=== PATIENT | female | born 1970 ===

== ENCOUNTER 2016-09-03 08:24 | Emergency (ER) | payer MEDICARE, OTHER ==
[~2016-09-03] VITALS: Ht 176.5 cm; Wt 102.3 kg
[~2016-09-03 08:24] MED LIST: ABAC1TAB14 PO; ALBU90AE IH; AMT50T PO; ATOR20TA PO; AZEL137S11 NS; CETI10CA PO; ESOM40CA41 PO; FLUT16SP NS; GABA800T2 PO; GLIM2TAB2 PO; HYDR2TAB28 PO; HYDR50TA76 PO; INSU100I13 SUBQ; INSU100V7 SUBQ; KLO1T PO; LOSA25TA21 PO; METF1000 PO; METF500T4 PO; PRAZ1CAP2 PO; PROP80CA2 PO; RANI300C PO; TIOT18CA3 IH; TIZA4CAP8 PO
[2016-09-03 08:26] VITALS: BP 131/66; PULSE 83; RESP 16; O2SAT 98
--- NOTE | 2016-09-03 09:03 | ED.REPORT ---
HPI-Extremity Problem Lower Date of Service Sep 03, 2016 ED Provider: Kamari Del Rio MD Patient is a 46 year old female with a previous diagnosis of a torn meniscus who presents to the ED complaining of R knee pain onset last night. Her pain is constant and exacerbated by ROM. Associated symptoms include diaphoresis and almeida pain. She denies numbness, fever, cough, vomiting, diarrhea, incontinence, or any other symptoms. She is awaiting surgery for her injury but first needs back surgery. She needs to get her DM under control before she can have her surgeries and has attempted to be more active. She has tried tramadol (as prescribed by Dr. Cabral) but has not found any relief. She also takes gabapentin and amitriptyline. Nursing Notes Stated Complaint: PAIN IN RIGHT KNEE,ALMEIDA,HIP AND BACK Chief Complaint: Extremity Trauma Nursing Notes Reviewed: Yes Allergies: Coded Allergies: Sulfa (Sulfonamide Antibiotics) (Verified Allergy, Severe, RASH, 05/13/16) ciprofloxacin (Verified Allergy, Severe, RASH, 05/13/16) clarithromycin (Verified Allergy, Severe, rash, 05/13/16) levofloxacin (Verified Allergy, Severe, ANAPHYLAXIS, 05/13/16) pregabalin (Verified Allergy, Severe, ANAPHYLAXIS, 05/13/16) aspirin (Verified Allergy, Mild, TINNITUS, 05/13/16) valdecoxib (Verified Allergy, Unknown, UNKNOWN, 05/13/16) amoxicillin (Verified Adverse Reaction, Severe, GI UPSET, 05/13/16) clavulanic acid (Verified Adverse Reaction, Severe, GI UPSET, 05/13/16) Scheduled Abacavir/Dolutegravir/Lamivudi (Triumeq Tablet) 1 Each Tablet 1 EACH PO DAILY Amitriptyline (Amitriptyline) 50 Mg Tab 50 MG PO HS Atorvastatin (Lipitor) 20 Mg Tablet 20 MG PO DAILY Azelastine HCl (Azelastine HCl) 137 Mcg/0.137 Ml [place].pump 137 MCG NS BID Cetirizine HCl (Zyrtec) 10 Mg Capsule 10 MG PO HS Esomeprazole Magnesium (Nexium) 40 Mg Capsule.dr 40 MG PO DAILY Fluticasone Propionate (Fluticasone Propionate Nasal) 16 Gm [place].susp 2 SPRAY NS DAILY Gabapentin (Gabapentin) 800 Mg Tablet 800 MG PO TID Glimepiride (Glimepiride) 2 Mg Tablet 4 MG PO BID Insulin Glargine (Lantus U100 Insulin Vial) 100 Unit/Ml Vial 12-20 UNIT SUBQ QPM Insulin Glargine (Lantus U100 Solostar Insulin Pen) 100 Unit/1 Ml Insuln.pen 30 UNIT SUBQ QAM Losartan Potassium (Losartan Potassium) 25 Mg Tablet 25 MG PO DAILY Metformin (Glucophage) 1,000 Mg Tablet 1,000 MG PO QAM Metformin (Metformin) 500 Mg Tablet 500 MG PO QPM Prazosin (Prazosin) 1 Mg Capsule 1 MG PO DAILY Propranolol ER (Propranolol ER) 80 Mg Cap.sa.24h 80 MG PO DAILY Ranitidine (Ranitidine) 300 Mg Capsule 300 MG PO DAILY Tiotropium [place] (Spiriva) 18 Mcg Cap.w.dev 18 MCG IH DAILY Scheduled PRN Albuterol Sulfate (Proair Respiclick) 90 Mcg Aer.pow.ba 90 MCG IH q4-6h PRN PRN For Shortness of Breath Clonazepam (Clonazepam) 1 Mg Tablet 1 MG PO TID PRN PRN For Anxiety Hydromorphone (Hydromorphone) 2 Mg Tablet 2 MG PO Q4H PRN PRN Pain Hydroxyzine HCl (HydrOXYzine Hcl) 50 Mg Tablet 50 MG PO TID PRN PRN For Spasm Oxycodone (Roxicodone) 5 Mg Tablet 5 MG PO Q4H PRN PRN For Pain Tizanidine (Tizanidine) 4 Mg Capsule 4 MG PO Q8H PRN PRN For Spasm General Time Seen by MD: 09:00 Chief Complaint Knee injury right Hx Obtained From: Patient Arrived By: Walk-in Similar Sx Previous: Yes Past Medical History Past Medical History Notes: PCP: Dr. Harvey is primary care Past Medical History HIV+ Cirrhosis Gall bladder disease Hiatal hernia Chronic back pain fibromyalgia Anxiety Bipolar Hemorrhoids Hx of multiple prior SI attempts Reports: COPD, Diabetes mellitus, GERD, Hypertension Reports: Depression Past Surgical History 1. Hemorrhoidectomy (07/21/2014) 2. Right knee surgery 3. Laparoscopic total abdominal hysterectomy. matrixectomy Sinus Surgery Reports: Cholecystectomy, Hysterectomy Smoking History Current Every Day Smoker, Heavy Tobacco Smoker Social History Alcohol Use: In recovery Drug Use: In recovery, THC Other Social History: Good social support, , Local resident Occupation lives with Ambulatory Status Cane Review of Systems Constitutional: Denies: Fever Musculoskeletal: Reports: Extremity pain (R almeida), Joint pain (R knee ) Skin: Reports Diaphoresis Neurologic: Denies: Numbness Complete sys rev & neg: except as marked. Respiratory: Denies: Non-productive cough GI: Denies: Diarrhea, Vomiting Physical Exam Initial Vital Signs Vital Signs (First) Date Time Temp Pulse Resp B/P Pulse Ox O2 Delivery O2 Flow Rate FiO2 09/03/16 08:26 36.3 83 16 131/66 98 Room Air Initial VS: Reviewed General/Constitutional: Well-developed, Well-nourished Head / Eyes: Atraumatic, Normocephalic Respiratory: Breath sounds normal, Clear to auscultation, No respiratory distress Cardiovascular: Regular rate & rhythm, Heart sounds normal, Intact distal pulses Abdomen / GI: Soft, Non-tender Neurologic: Alert, Oriented, Nonfocal Psychiatric: Mood/affect normal, Behavior normal, Normal thought content Lower Extremity / Pelvis / MS: No swelling, No erythema, No deformity No warmth in R knee Ankle / Foot: Inspection NL dorsalis pedis pulses intact Re-Eval/Medical Decision Re-Evaluation/Progress : Time of Eval: 10:14 Re-Evaluation/Progress Note: Rechecked patient. Discussed plan to start oxycodone and interaction precautions with her clonazepam. Discussed plan for discharge. Patient understands and agrees with plan. All questions addressed at this time. Consultation : Referral / Consult Name: Radha Raya MARICRUZ Call Returned at: 10:00 Foundation Engineer: Agrees with eval, Agrees with plan Note: Discussed patient's case with on-call physician for Patient's PCP. Suggests prescribing 5 mg Oxycodone to last until patient can follow up with Dr. Harvey next week. Counseled Regarding: Diagnosis, Need for follow-up, When/why to return to ED Discharge & Departure Impression: Primary Impression: Chronic pain of right knee Additional Impression: Lumbar radiculopathy, right Disposition: Home Discharge Condition All VS Reviewed: Yes Condition: Stable Patient Instructions: Lumbar Radiculopathy (ED) Additional Instructions: No immediately dangerous cause for your pain is discovered. I believe that your pain is probably a combination of the disc herniation in her low back and the chronic problems with your right knee. Given that you cannot take Tylenol and nonsteroidal anti-inflammatory medications and that you are maximized on your therapy with gabapentin and amitriptyline, and in consultation with Radha Raya who is bundle person for Dr. Hakeem Rosas I believe that a short course of oxycodone is reasonable. This medication should be used with great caution because of your concomitant use of clonazepam. You should not be alone when using this medication. Of course this medication makes you unfit to drive and will certainly cause constipation and may cause nausea as well. I recommend that you take proactive steps to avoid constipation. Call Monday to schedule an appointment in the coming days with Dr. Rosas to discuss ongoing chronic pain management. I would be unwilling to continue to prescribe narcotic pain medication in this setting Referrals: Hakeem Harvey MD (PCP) 2-3 days Scribe Attestation Portions of this note were transcribed by Areli Barton. I, Dr. Del Rio personally performed the history, physical exam and medical decision-making; I reviewed and confirmed the accuracy of the information in the transcribed note. Signed by: Areli Barton 09/03/16, 1115 copies to: Hakeem Harvey MD, Kirk H MD Sep 03, 2016 09:03 ARELI BARTON Sep 03, 2016 09:49
[2016-09-03] MEDS ORDERED: OXYC-474 PO (10:30)
[2016-09-03 10:49] VITALS: BP 125/87; PULSE 78; RESP 16; O2SAT 96
[2016-10-19] MEDS ORDERED: CEPH500C PO (12:59)
== END 2016-09-03 10:48 | disposition home or self-care (01) ==
LOC: SED 08:24
DX: M25.561 Pain in right knee (principal); G89.29 Other chronic pain; M54.16 Radiculopathy, lumbar region; R61 Generalized hyperhidrosis; J44.9 Chronic obstructive pulmonary disease, unspecified; K21.9 Gastro-esophageal reflux disease without esophagitis; E11.9 Type 2 diabetes mellitus without complications; I10 Essential (primary) hypertension; F31.9 Bipolar disorder, unspecified; M79.7 Fibromyalgia; F17.290 Nicotine dependence, other tobacco product, uncomplicated; Z98.890 Other specified postprocedural states; Z79.4 Long term (current) use of insulin; Z79.84 Long term (current) use of oral hypoglycemic drugs; Z88.1 Allergy status to other antibiotic agents; Z88.2 Allergy status to sulfonamides; Z88.8 Allergy status to other drugs, medicaments and biological substances

== ENCOUNTER 2016-09-10 05:02 | Emergency (ER) | payer MEDICARE, OTHER ==
[~2016-09-10] VITALS: Ht 175.3 cm; Wt 102.3 kg
[~2016-09-10 05:02] MED LIST changes: +OXYC-474 PO
[2016-09-10 05:08] VITALS: BP 114/71; PULSE 106; RESP 17; O2SAT 95
[2016-09-10 05:38] LABS: BASOPHILS % (AUTO) 0.7 % (0-3); EOSINOPHILS % (AUTO) 1.9 % (0-5); MONOCYTES % (AUTO) 5.2 % (4-12); Mean Corpuscular Hemoglobin 29.1 pg (27.0-35.0); Mean Corpuscular Volume 84.9 fL (81-100); NEUTROPHILS % (AUTO) 42.7 % (40-74); Platelet Count 367 bil/L (150-400)
--- NOTE | 2016-09-10 07:37 | ED.REPORT ---
HPI-Psychiatric Illness Date of Service Sep 10, 2016 ED Provider: Familia Arboleda MD Patient is a 46 year old female who presents to the ED via police for a mental health evaluation. She was making vague comments about suicide and self-harm so police became increasingly concerned and brought her to the ED. Patient denies suicidal ideation, homicidal ideations, or any other symptoms. She reports that she was drinking last night and cut her L arm to "get the pain out" of her head. She has an appointment with her psychiatrist on 09/14/16. Nursing Notes Stated Complaint: MENTAL HEALTH Chief Complaint: Psychiatric Complaint Nursing Notes Reviewed: Yes Allergies: Coded Allergies: Sulfa (Sulfonamide Antibiotics) (Verified Allergy, Severe, RASH, 05/13/16) ciprofloxacin (Verified Allergy, Severe, RASH, 05/13/16) clarithromycin (Verified Allergy, Severe, rash, 05/13/16) levofloxacin (Verified Allergy, Severe, ANAPHYLAXIS, 05/13/16) pregabalin (Verified Allergy, Severe, ANAPHYLAXIS, 05/13/16) aspirin (Verified Allergy, Mild, TINNITUS, 05/13/16) valdecoxib (Verified Allergy, Unknown, UNKNOWN, 05/13/16) amoxicillin (Verified Adverse Reaction, Severe, GI UPSET, 05/13/16) clavulanic acid (Verified Adverse Reaction, Severe, GI UPSET, 05/13/16) Scheduled Abacavir/Dolutegravir/Lamivudi (Triumeq Tablet) 1 Each Tablet 1 EACH PO DAILY Amitriptyline (Amitriptyline) 50 Mg Tab 50 MG PO HS Atorvastatin (Lipitor) 20 Mg Tablet 20 MG PO DAILY Azelastine HCl (Azelastine HCl) 137 Mcg/0.137 Ml [place].pump 137 MCG NS BID Cetirizine HCl (Zyrtec) 10 Mg Capsule 10 MG PO HS Esomeprazole Magnesium (Nexium) 40 Mg Capsule.dr 40 MG PO DAILY Fluticasone Propionate (Fluticasone Propionate Nasal) 16 Gm [place].susp 2 SPRAY NS DAILY Gabapentin (Gabapentin) 800 Mg Tablet 800 MG PO TID Glimepiride (Glimepiride) 2 Mg Tablet 4 MG PO BID Insulin Glargine (Lantus U100 Insulin Vial) 100 Unit/Ml Vial 12-20 UNIT SUBQ QPM Insulin Glargine (Lantus U100 Solostar Insulin Pen) 100 Unit/1 Ml Insuln.pen 30 UNIT SUBQ QAM Losartan Potassium (Losartan Potassium) 25 Mg Tablet 25 MG PO DAILY Metformin (Glucophage) 1,000 Mg Tablet 1,000 MG PO QAM Metformin (Metformin) 500 Mg Tablet 500 MG PO QPM Prazosin (Prazosin) 1 Mg Capsule 1 MG PO DAILY Propranolol ER (Propranolol ER) 80 Mg Cap.sa.24h 80 MG PO DAILY Ranitidine (Ranitidine) 300 Mg Capsule 300 MG PO DAILY Tiotropium Aline (Spiriva) 18 Mcg Cap.w.dev 18 MCG IH DAILY Scheduled PRN Albuterol Sulfate (Proair Respiclick) 90 Mcg Aer.pow.ba 90 MCG IH q4-6h PRN PRN For Shortness of Breath Clonazepam (Clonazepam) 1 Mg Tablet 1 MG PO TID PRN PRN For Anxiety Hydromorphone (Hydromorphone) 2 Mg Tablet 2 MG PO Q4H PRN PRN Pain Hydroxyzine HCl (HydrOXYzine Hcl) 50 Mg Tablet 50 MG PO TID PRN PRN For Spasm Oxycodone (Roxicodone) 5 Mg Tablet 5 MG PO Q4H PRN PRN For Pain Tizanidine (Tizanidine) 4 Mg Capsule 4 MG PO Q8H PRN PRN For Spasm General Time Seen by MD: 05:22 Chief Complaint Suicidal ideation Hx Obtained From: Patient, Police Arrived By: Police Caused by: Cut self Similar Sx Previous: Yes Risk-Psychiatric Illness Suicide Risk Stratification Suicide Risk Factors - Adult: : Alcohol use: Previous attempt RF Statements: Risk factors reviewed Past Medical History Past Medical History Notes: PCP: Dr. Harvey is primary care Past Medical History HIV+ Cirrhosis Gall bladder disease Hiatal hernia Chronic back pain fibromyalgia Anxiety Bipolar Hemorrhoids Hx of multiple prior SI attempts PTSD Reports: COPD, Diabetes mellitus, GERD, Hypertension Reports: Depression Past Surgical History 1. Hemorrhoidectomy (07/21/2014) 2. Right knee surgery 3. Laparoscopic total abdominal hysterectomy. matrixectomy Sinus Surgery Reports: Cholecystectomy, Hysterectomy Smoking History Current Every Day Smoker, Heavy Tobacco Smoker Social History Alcohol Use: In recovery Drug Use: In recovery, Meth, THC Other Social History: Good social support, , Local resident Occupation lives with Ambulatory Status Cane Review of Systems Constitutional: Denies: Fever Cardiovascular: Denies: Chest pain GI: Denies: Abdominal pain Psychiatric: Reports: Suicidal ideation (Self harming ), Denies: Hallucinations, auditory, Hallucinations, visual, Homicidal ideation Complete sys rev & neg: except as marked. Physical Exam Initial Vital Signs Vital Signs (First) Date Time Temp Pulse Resp B/P Pulse Ox O2 Delivery O2 Flow Rate FiO2 09/10/16 05:08 37.0 106 17 114/71 95 Room Air Initial VS: Reviewed Head / Eyes: Atraumatic, Normocephalic General/Constitutional: Awake, Alert, Well developed Neurologic: Oriented X3, Speech NL Psychiatric: Affect NL, Mood NL, Not suicidal, Not homicidal Respiratory / Chest: Breath sounds NL, Breath sounds = bilat, No respiratory distress Cardiovascular: Heart rate NL, Regular rhythm, Heart sounds NL Abdomen: Soft, Non-tender Skin: Warm, Dry Superficial abrasions on the L arm. No arterial involvement or deep lacerations. Upper Extremity / MS: Neurologic intact, Vascular intact Interpretation & Diagnostics Lab Results Interpretation Result Diagram: 09/10/16 0530 09/10/16 0530 Test 09/10/16 05:15 09/10/16 05:30 Hold Urine Received (Received) White Blood Count 13.0th/mm3 (3.8-10.1) Red Blood Count 5.49mil/mm3 (3.90-5.20) Hemoglobin 16.0g/dL (12.0-15.6) Hematocrit 46.6% (35.0-46.0) Mean Corpuscular Volume 84.9fL (81-100) Mean Corpuscular Hemoglobin 29.1pg (27.0-35.0) Mean Corpuscular Hemoglobin Concent 34.3% (32.0-37.0) Red Cell Distribution Width 13.1% (12.3-15.4) Platelet Count 367bil/L (150-400) Neutrophils (%) (Auto) 42.7% (40-74) Lymphocytes (%) (Auto) 49.3% (14-46) Monocytes (%) (Auto) 5.2% (4-12) Eosinophils (%) (Auto) 1.9% (0-5) Basophils (%) (Auto) 0.7% (0-3) Sodium Level 142mEq/L (134-144) Potassium Level 4.4mEq/L (3.5-5.2) Chloride Level 104mEq/L (97-108) Carbon Dioxide Level 22mmol/L (18-29) Blood Urea Nitrogen 4mg/dL (6-24) Creatinine 0.60mg/dL (0.57-1.00) Estimat Glomerular Filtration Rate 156mL/min (>59) Glucose Level 210mg/dL (60-99) Calcium Level 9.8mg/dL (8.5-10.1) Total Bilirubin 0.2mg/dL (0.0-1.2) Aspartate Amino Transf (AST/SGOT) 20U/L (0-50) Alanine Aminotransferase (ALT/SGPT) 24U/L (0-32) Alkaline Phosphatase 95U/L (25-150) Total Protein 8.0g/dL (6.4-8.4) Albumin 4.4g/dL (3.4-5.0) Thyroid Stimulating Hormone (TSH) 2.020uIU/mL (0.450-4.500) Hold [place] Top Tube Received (Received) Lab Results Interpretation: Urine positive for tricyclics and THC. Re-Eval/Medical Decision Med Decision/Clinical Course 46-year-old female history of alcohol abuse and previous suicide attempts presenting after drinking last night and cutting her arm. She reports she did not try to kill herself. She simply wanted to feel the pain. The lacerations are over the dorsal aspect of her left forearm. Superficial. Up-to-date tetanus. Patient was initially intoxicated with repeat blood alcohol level within normal limits after 4 hours observation. She was evaluated by socially responsible investment adviser and denied any suicidal ideation or intent. Plan is to discharge home at this time with resources provided by social work. Return precautions given. Re-Evaluation/Progress : Time of Eval: 11:03 )( Re-Eval Psychiatric: No danger to self, No danger to others, No suicidal ideation Re-Evaluation/Progress Note: Discussed plan for discharge with psychiatric follow up. Patient understands and agrees with plan. All questions addressed at this time. Counseled Regarding: Diagnosis, Need for follow-up, When/why to return to ED Discharge & Departure Impression: Primary Impression: Suicidal ideation Additional Impression: Alcohol intoxication )( Condition at Discharge: No danger to self, No danger to others, No suicidal ideation, No homicidal ideation Disposition: Home Discharge Condition All VS Reviewed: Yes Condition: Improved Additional Instructions: Thank you for entrusting us with your care. Avoid drinking alcohol and follow up with your primary physician as needed. Attend your appointment with your psychiatrist on the . Return to the emergency department if you experience any new or worsening symptoms. Referrals: Hakeem Harvey MD (PCP) Scribe Attestation Portions of this note were transcribed by Areli Townsend. I, Dr. Arboleda personally performed the history, physical exam and medical decision-making; I reviewed and confirmed the accuracy of the information in the transcribed note. Signed by: Areli Townsend 09/10/16, 1104 copies to: Hakeem Harvey MD, Ben M MD Sep 10, 2016 07:37 ARELI TOWNSEND Sep 10, 2016 07:51
[2016-09-10 11:13] VITALS: BP 128/75; PULSE 105; RESP 16; O2SAT 97
[2016-10-19] MEDS ORDERED: CEPH500C PO (12:59)
== END 2016-09-10 11:15 | disposition home or self-care (01) ==
LOC: SED 05:02
DX: R45.851 Suicidal ideations (principal); F10.10 Alcohol abuse, uncomplicated; S40.812A Abrasion of left upper arm, initial encounter; X78.8XXA Intentional self-harm by other sharp object, initial encounter; Y93.9 Activity, unspecified; Y92.9 Unspecified place or not applicable; Y99.9 Unspecified external cause status; I10 Essential (primary) hypertension; E11.9 Type 2 diabetes mellitus without complications; K21.9 Gastro-esophageal reflux disease without esophagitis; F43.10 Post-traumatic stress disorder, unspecified; Z79.4 Long term (current) use of insulin; Z79.84 Long term (current) use of oral hypoglycemic drugs; Z88.1 Allergy status to other antibiotic agents; Z88.2 Allergy status to sulfonamides; Z88.8 Allergy status to other drugs, medicaments and biological substances; Z72.0 Tobacco use

== ENCOUNTER 2016-10-04 10:59 | Emergency (ER) | payer MEDICARE, OTHER ==
[~2016-10-04] VITALS: Ht 176.5 cm; Wt 113.5 kg
[2016-10-04 11:01] VITALS: BP 122/77; PULSE 95; RESP 16; O2SAT 97
[2016-10-04] MEDS ORDERED: SITA50TA PO (11:07)
--- NOTE | 2016-10-04 11:12 | ED.REPORT ---
HPI-Abd Pain F 40 and Over Date of Service Oct 04, 2016 ED Provider: Familia Arboleda MD The patient is a 46 year old female with history of diabetes mellitus, hypertension, cirrhosis, GERD, chronic pain, fibromyalgia, and hemorrhoids s/p hemorrhoidectomy, who presents to the emergency department complaining of rectal bleeding. The patient noticed a small amount of blood in the toilet over the last few days but it has worsened today. She felt lightheaded during her walk this morning. She has previously used suppositories in the past for her hemorrhoids. She denies nausea, vomiting, hematemesis, melena, tarry stools, abdominal pain, fever or chills. She also mentions chronic back pain. She is scheduled to have surgery when her A1C is improved. Nursing Notes Stated Complaint: BLEEDING Chief Complaint: Female Abdominal Pain Nursing Notes Reviewed: Yes Allergies: Coded Allergies: Sulfa (Sulfonamide Antibiotics) (Verified Allergy, Severe, RASH, 10/04/16) ciprofloxacin (Verified Allergy, Severe, RASH, 10/04/16) clarithromycin (Verified Allergy, Severe, rash, 10/04/16) levofloxacin (Verified Allergy, Severe, ANAPHYLAXIS, 10/04/16) pregabalin (Verified Allergy, Severe, ANAPHYLAXIS, 05/13/16) aspirin (Verified Allergy, Mild, TINNITUS, 10/04/16) valdecoxib (Verified Allergy, Unknown, UNKNOWN, 10/04/16) amoxicillin (Verified Adverse Reaction, Severe, GI UPSET, 10/04/16) clavulanic acid (Verified Adverse Reaction, Severe, GI UPSET, 10/04/16) Scheduled Abacavir/Dolutegravir/Lamivudi (Triumeq Tablet) 1 Each Tablet 1 EACH PO DAILY Amitriptyline (Amitriptyline) 50 Mg Tab 50 MG PO HS Atorvastatin (Lipitor) 20 Mg Tablet 20 MG PO DAILY Azelastine HCl (Azelastine HCl) 137 Mcg/0.137 Ml [place].pump 137 MCG NS BID Cetirizine HCl (Zyrtec) 10 Mg Capsule 10 MG PO HS Clonazepam (Clonazepam) 1 Mg Tablet 1 MG PO TID Esomeprazole Magnesium (Nexium) 40 Mg Capsule.dr 40 MG PO DAILY Fluticasone Propionate (Fluticasone Propionate Nasal) 16 Gm [place].susp 2 SPRAY NS DAILY Gabapentin (Gabapentin) 800 Mg Tablet 800 MG PO TID Glimepiride (Glimepiride) 2 Mg Tablet 4 MG PO BID Insulin Glargine (Lantus U100 Insulin Vial) 100 Unit/Ml Vial 55 UNIT SUBQ QPM Losartan Potassium (Losartan Potassium) 25 Mg Tablet 25 MG PO DAILY Metformin (Glucophage) 1,000 Mg Tablet 1,000 MG PO QAM Metformin (Metformin) 500 Mg Tablet 500 MG PO QPM Prazosin (Prazosin) 1 Mg Capsule 1 MG PO DAILY Propranolol ER (Propranolol ER) 80 Mg Cap.sa.24h 80 MG PO DAILY Ranitidine (Ranitidine) 300 Mg Capsule 300 MG PO DAILY Sitagliptin Phos (Januvia) 50 Mg Tablet 50 MG PO DAILY Tiotropium [place] (Spiriva) 18 Mcg Cap.w.dev 18 MCG IH DAILY Scheduled PRN Albuterol Sulfate (Proair Respiclick) 90 Mcg Aer.pow.ba 90 MCG IH q4-6h PRN PRN For Shortness of Breath Hydrocortisone (Proctocream-Hc) 30 Gm Cream.appl 30 GM RC DAILY PRN PRN hemorrhoids General Time Seen by MD: 11:10 Chief Complaint Rectal bleeding Hx Obtained From: Patient, Spouse Arrived By: Walk-in Sudden in Onset?: Yes Onset Occurred: 3 days ago Symptom Duration: Intermittent Progression since Onset: Intermittent, Gradually worsening Severity: Current: No pain currently Severity: Maximum: No pain Recent Healthcare: No recent hospitalization Similar Sx Previous: Yes Past Medical History Past Medical History Notes: PCP: Dr. Harvey Past Medical History HIV+ Cirrhosis Gall bladder disease Hiatal hernia Chronic back pain fibromyalgia Anxiety Bipolar Hemorrhoids Hx of multiple prior SI attempts PTSD Reports: COPD, Diabetes mellitus, GERD, Hypertension Reports: Depression Past Surgical History 1. Hemorrhoidectomy (07/21/2014) 2. Right knee surgery 3. Laparoscopic total abdominal hysterectomy. matrixectomy Sinus Surgery Reports: Cholecystectomy, Hysterectomy Smoking History Current Every Day Smoker, Heavy Tobacco Smoker Social History Alcohol Use: In recovery Drug Use: In recovery, Meth, THC Other Social History: Good social support, , Local resident Occupation lives with Ambulatory Status Cane Review of Systems +rectal bleeding Constitutional: Denies: Chills, Fever GI: Denies: Abdominal pain, Bloody/tarry stool, Constipation, Diarrhea, Hematemesis, Melena, Nausea, Vomiting Musculoskeletal: Reports: Back pain (chronic) Complete sys rev & neg: except as marked. Neurologic: Reports: Lightheaded Physical Exam Vital Signs Vital Signs (First) Date Time Temp Pulse Resp B/P Pulse Ox O2 Delivery O2 Flow Rate FiO2 10/04/16 11:01 36.3 95 16 122/77 97 Room Air Initial VS: Reviewed Head / Eyes: Atraumatic, Normocephalic, PERRL ENT: Mucous membranes moist, Conjunctiva normal, No scleral icterus Neck: Supple, Non-tender, Full range of motion Lymphatic: No lymphadenopathy Extremities: Vascular intact, Neuro intact, No swelling, No tenderness Skin: Warm, Dry, No cyanosis Neurologic: Alert, Oriented, Nonfocal Psychiatric: Mood/affect normal, Behavior normal, Normal thought content General/Constitutional: Awake, Alert, Cooperative Respiratory / Chest: Atraumatic, Breath sounds NL, Breath sounds = bilat, No respiratory distress, No rales, No rhonchi, No wheezing, No stridor Cardiovascular: Heart rate NL, Regular rhythm, Heart sounds NL, No gallop, No murmurs, No rubs, Peripheral circulation NL Abdomen: Soft, No guarding, No rebound, BS normoactive, No distention Back: Inspection NL Rectum / Perineum: Blood - occult heme -, No gross blood Rectal for Blood: Negative: Melena present Multiple hemorrhoids. No active bleeding. Interpretation & Diagnostics Lab Results Interpretation Result Diagram: 10/04/16 1155 10/04/16 1155 Test 10/04/16 11:55 10/04/16 12:07 White Blood Count 11.3th/mm3 (3.8-10.1) Red Blood Count 4.83mil/mm3 (3.90-5.20) Hemoglobin 13.7g/dL (12.0-15.6) Hematocrit 40.9% (35.0-46.0) Mean Corpuscular Volume 84.7fL (81-100) Mean Corpuscular Hemoglobin 28.4pg (27.0-35.0) Mean Corpuscular Hemoglobin Concent 33.5% (32.0-37.0) Red Cell Distribution Width 12.9% (12.3-15.4) Platelet Count 289bil/L (150-400) Neutrophils (%) (Auto) 57.3% (40-74) Lymphocytes (%) (Auto) 33.1% (14-46) Monocytes (%) (Auto) 5.0% (4-12) Eosinophils (%) (Auto) 4.0% (0-5) Basophils (%) (Auto) 0.4% (0-3) Sodium Level 138mEq/L (134-144) Potassium Level 4.0mEq/L (3.5-5.2) Chloride Level 101mEq/L (97-108) Carbon Dioxide Level 21mmol/L (18-29) Blood Urea Nitrogen 7mg/dL (6-24) Creatinine 0.62mg/dL (0.57-1.00) Estimat Glomerular Filtration Rate 150mL/min (>59) Glucose Level 139mg/dL (60-99) Calcium Level 9.5mg/dL (8.5-10.1) Total Bilirubin 0.3mg/dL (0.0-1.2) Aspartate Amino Transf (AST/SGOT) 18U/L (0-50) Alanine Aminotransferase (ALT/SGPT) 17U/L (0-32) Alkaline Phosphatase 86U/L (25-150) Total Protein 6.9g/dL (6.4-8.4) Albumin 3.6g/dL (3.4-5.0) Hold [place] Top Tube Received (Received) Hold Urine Received (Received) Re-Eval/Medical Decision Med Decision/Clinical Course 46-year-old femal history of hemorrhoids presenting complaining of BRBPR onto paper today. No sign symptoms anemia. She has had a colonoscopy which was normal in the past. Hemoglobin is stable. She is guaiac negative and there is no gross blood on rectal exam. She does have hemorrhoids. There is no active bleeding. We will treat for hemorrhoids and recommended follow-up with primary doctor. May benefit from outpatient colonoscopy if this continues. Source of Hx: Old records Re-Evaluation/Progress : Time of Eval: 12:34 Re-Evaluation/Progress Note: Discussed plan for discharge. All questions were addressed. Counseled Regarding: Diagnosis, Need for follow-up, When/why to return to ED Discharge & Departure Primary Impression: Rectal bleeding Additional Impression: Hemorrhoids Hemorrhoid type: unspecified Qualified Code: K64.9 - Unspecified hemorrhoids Disposition: Home Discharge Condition All VS Reviewed: Yes Condition: Stable Patient Instructions: Hemorrhoids (ED) Additional Instructions: Thank you for entrusting us with your care today. There is no active bleeding at this time. Your labs today were reassuring. Your blood levels are normal. The bleeding is most likely related to hemorrhoids. Use the suppositories as prescribed. Try to eat a high fiber diet. I also recommend following up with your regular doctor in the next few days for further management of this. You may need to have another colonoscopy. Seek care for increased bleeding, melena, vomiting, hematemesis, weakness, syncope, or any other new or concerning symptoms. Referrals: Hakeem Harvey MD (PCP) Erickaibe Attestation Portions of this note were transcribed by Shirley Jenkins. I, Dr. Arboleda personally performed the history, physical exam and medical decision-making; I reviewed and confirmed the accuracy of the information in the transcribed note. Signed by: Sid Mayorga, 10/04/2016 at 1238. copies to: Hakeem Harvey MD, Ben M MD Oct 04, 2016 11:12 Shirley Jenkins Oct 04, 2016 11:19
[2016-10-04 12:05] LABS: BASOPHILS % (AUTO) 0.4 % (0-3); Mean Corpuscular Hemoglobin 28.4 pg (27.0-35.0); Mean Corpuscular Volume 84.7 fL (81-100); NEUTROPHILS % (AUTO) 57.3 % (40-74); Platelet Count 289 bil/L (150-400)
[2016-10-04] MEDS ORDERED: HYDR30CR57 RC (12:41)
[2016-10-04 12:59] VITALS: BP 131/69; PULSE 79; RESP 17; O2SAT 97
[2016-10-19] MEDS ORDERED: CEPH500C PO (12:59)
== END 2016-10-04 13:00 | disposition home or self-care (01) ==
LOC: SED 10:59
DX: K64.9 Unspecified hemorrhoids (principal); K62.5 Hemorrhage of anus and rectum; R42 Dizziness and giddiness; M54.9 Dorsalgia, unspecified; G89.29 Other chronic pain; I10 Essential (primary) hypertension; J44.9 Chronic obstructive pulmonary disease, unspecified; K21.9 Gastro-esophageal reflux disease without esophagitis; E11.9 Type 2 diabetes mellitus without complications; M79.7 Fibromyalgia; F17.200 Nicotine dependence, unspecified, uncomplicated; Z98.890 Other specified postprocedural states; Z21 Asymptomatic human immunodeficiency virus [HIV] infection status; Z79.4 Long term (current) use of insulin; Z79.84 Long term (current) use of oral hypoglycemic drugs; Z88.1 Allergy status to other antibiotic agents; Z88.2 Allergy status to sulfonamides; Z88.8 Allergy status to other drugs, medicaments and biological substances
CPT/HCPCS: 36415; 80053; 85025; 96372; 99284; J1885

== ENCOUNTER 2016-10-17 09:22 | Emergency (ER) | payer MEDICARE, OTHER ==
[~2016-10-17] VITALS: Ht 175.3 cm; Wt 104.5 kg
[~2016-10-17 09:22] MED LIST changes: -HYDR2TAB28 PO; +HYDR30CR57 RC; -HYDR50TA76 PO; -INSU100I13 SUBQ; -OXYC-474 PO; +SITA50TA PO; -TIZA4CAP8 PO
[2016-10-17 09:24] VITALS: BP 131/75; PULSE 82; RESP 16; O2SAT 96
--- NOTE | 2016-10-17 09:55 | ED.REPORT ---
HPI-Abd Pain F 40 and Over Date of Service Oct 17, 2016 ED Provider: Familia Arboleda MD The patient is a 46 year old female with history of diabetes mellitus, hypertension, cirrhosis, GERD, chronic pain, fibromyalgia, hiatal hernia, and hemorrhoids s/p hemorrhoidectomy, who presents to the emergency department complaining of abdominal pain that began 2 days ago. She describes the pain as a pressure. Her pain was much worse this morning when she was having a bowel movement. She has noticed decreased appetite. She denies constipation, diarrhea , nausea, vomiting, black/tarry stools, melena, hematochezia, dysuria, vaginal bleeding, vaginal discharge, , or new back pain. Nursing Notes Stated Complaint: LOWER ABDOMINAL PAIN/BACK PAIN Chief Complaint: Female Abdominal Pain Nursing Notes Reviewed: Yes Allergies: Coded Allergies: Sulfa (Sulfonamide Antibiotics) (Verified Allergy, Severe, RASH, 10/04/16) ciprofloxacin (Verified Allergy, Severe, RASH, 10/04/16) clarithromycin (Verified Allergy, Severe, rash, 10/04/16) levofloxacin (Verified Allergy, Severe, ANAPHYLAXIS, 10/04/16) pregabalin (Verified Allergy, Severe, ANAPHYLAXIS, 05/13/16) aspirin (Verified Allergy, Mild, TINNITUS, 10/04/16) valdecoxib (Verified Allergy, Unknown, UNKNOWN, 10/04/16) amoxicillin (Verified Adverse Reaction, Severe, GI UPSET, 10/04/16) clavulanic acid (Verified Adverse Reaction, Severe, GI UPSET, 10/04/16) Scheduled Abacavir/Dolutegravir/Lamivudi (Triumeq Tablet) 1 Each Tablet 1 EACH PO DAILY Amitriptyline (Amitriptyline) 50 Mg Tab 50 MG PO HS Atorvastatin (Lipitor) 20 Mg Tablet 20 MG PO DAILY Azelastine HCl (Azelastine HCl) 137 Mcg/0.137 Ml [place].pump 137 MCG NS BID Cetirizine HCl (Zyrtec) 10 Mg Capsule 10 MG PO HS Clonazepam (Clonazepam) 1 Mg Tablet 1 MG PO TID Esomeprazole Magnesium (Nexium) 40 Mg Capsule.dr 40 MG PO DAILY Fluticasone Propionate (Fluticasone Propionate Nasal) 16 Gm [place].susp 2 SPRAY NS DAILY Gabapentin (Gabapentin) 800 Mg Tablet 800 MG PO TID Glimepiride (Glimepiride) 2 Mg Tablet 4 MG PO BID Insulin Glargine (Lantus U100 Insulin Vial) 100 Unit/Ml Vial 55 UNIT SUBQ QPM Losartan Potassium (Losartan Potassium) 25 Mg Tablet 25 MG PO DAILY Metformin (Glucophage) 1,000 Mg Tablet 1,000 MG PO QAM Metformin (Metformin) 500 Mg Tablet 500 MG PO QPM Nitrofurantoin Monohyd/M-Cryst (MacroBid) 100 Mg Capsule 100 MG PO BID Prazosin (Prazosin) 1 Mg Capsule 1 MG PO DAILY Propranolol ER (Propranolol ER) 80 Mg Cap.sa.24h 80 MG PO DAILY Ranitidine (Ranitidine) 300 Mg Capsule 300 MG PO DAILY Sitagliptin Phos (Januvia) 50 Mg Tablet 50 MG PO DAILY Tiotropium [place] (Spiriva) 18 Mcg Cap.w.dev 18 MCG IH DAILY Scheduled PRN Albuterol Sulfate (Proair Respiclick) 90 Mcg Aer.pow.ba 90 MCG IH q4-6h PRN PRN For Shortness of Breath Hydrocortisone (Proctocream-Hc) 30 Gm Cream.appl 30 GM RC DAILY PRN PRN hemorrhoids General Time Seen by MD: 09:37 Chief Complaint Abdominal pain Hx Obtained From: Patient Arrived By: Walk-in Sudden in Onset?: Yes Onset Occurred: Yesterday Symptom Duration: Since onset Progression since Onset: Constant, Gradually worsening Location: : Diffuse Quality: Painful, Pressure Radiation: : Back Severity: Current: Mild Severity: Maximum: Severe Associated with: Reports: Anorexia Pertinent Negative: Pt denies other symptoms Recent Healthcare: No recent hospitalization, Recent doctor visit Similar Sx Previous: Yes Past Medical History Past Medical History Notes: PCP: Dr. Harvey Past Medical History HIV+ Cirrhosis Gall bladder disease Hiatal hernia Chronic back pain fibromyalgia Anxiety Bipolar Hemorrhoids Hx of multiple prior SI attempts PTSD Reports: COPD, Diabetes mellitus, GERD, Hypertension Reports: Depression Past Surgical History 1. Hemorrhoidectomy (07/21/2014) 2. Right knee surgery 3. Laparoscopic total abdominal hysterectomy. 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 Physical Exam Vital Signs Vital Signs (First) Date Time Temp Pulse Resp B/P Pulse Ox O2 Delivery O2 Flow Rate FiO2 10/17/16 09:24 35.9 82 16 131/75 96 Room Air Initial VS: Reviewed Head / Eyes: Atraumatic, Normocephalic, PERRL ENT: Mucous membranes moist, Conjunctiva normal, No scleral icterus Neck: Supple, Non-tender, Full range of motion Lymphatic: No lymphadenopathy Extremities: Vascular intact, Neuro intact, No swelling, No tenderness Skin: Warm, Dry, No cyanosis Neurologic: Alert, Oriented, Nonfocal Psychiatric: Mood/affect normal, Behavior normal, Normal thought content General/Constitutional: Awake, Alert Respiratory / Chest: Atraumatic, Breath sounds NL, Breath sounds = bilat, No respiratory distress, No rales, No rhonchi, No wheezing, No stridor Cardiovascular: Heart rate NL, Regular rhythm, Heart sounds NL, No gallop, No murmurs, No rubs, Peripheral circulation NL Abdomen: Soft, No guarding, No rebound, BS normoactive, No distention, No hernia, No palpable mass, No pulsatile mass Tenderness/Guarding/Rebound: Negative: Tender RLQ... Diffuse abdominal tenderness, increased to the suprapubic and LLQ regions. Back: Full range of motion, Painless range of motion, Non-tender, No midline vertebral tend Female Genitourinary: Tool Engineer present (Claribel RN), Atraumatic, External genitalia NL, No cervical motion tend, No adnexal mass Lower Extremity / Pelvis / MS: No edema Interpretation & Diagnostics Lab Results Interpretation Result Diagram: 10/17/16 1035 10/17/16 1035 Test 10/17/16 10:35 10/17/16 11:53 White Blood Count 9.6th/mm3 (3.8-10.1) Red Blood Count 4.81mil/mm3 (3.90-5.20) Hemoglobin 13.6g/dL (12.0-15.6) Hematocrit 40.9% (35.0-46.0) Mean Corpuscular Volume 85.0fL (81-100) Mean Corpuscular Hemoglobin 28.3pg (27.0-35.0) Mean Corpuscular Hemoglobin Concent 33.3% (32.0-37.0) Red Cell Distribution Width 12.9% (12.3-15.4) Platelet Count 254bil/L (150-400) Neutrophils (%) (Auto) 58.6% (40-74) Lymphocytes (%) (Auto) 31.4% (14-46) Monocytes (%) (Auto) 4.4% (4-12) Eosinophils (%) (Auto) 4.9% (0-5) Basophils (%) (Auto) 0.5% (0-3) Sodium Level 135mEq/L (134-144) Potassium Level 4.5mEq/L (3.5-5.2) Chloride Level 99mEq/L (97-108) Carbon Dioxide Level 21mmol/L (18-29) Blood Urea Nitrogen 7mg/dL (6-24) Creatinine 0.65mg/dL (0.57-1.00) Estimat Glomerular Filtration Rate 142mL/min (>59) Glucose Level 218mg/dL (60-99) Calcium Level 9.0mg/dL (8.5-10.1) Magnesium Level 1.8mg/dL (1.6-2.6) Total Bilirubin 0.2mg/dL (0.0-1.2) Aspartate Amino Transf (AST/SGOT) 14U/L (0-50) Alanine Aminotransferase (ALT/SGPT) 12U/L (0-32) Alkaline Phosphatase 79U/L (25-150) Total Protein 7.0g/dL (6.4-8.4) Albumin 3.6g/dL (3.4-5.0) Lipase 43U/L (13-60) Hold [place] Top Tube Received (Received) Urine Color Yellow (YELLOW) Urine Appearance Slightly cloudy Urine pH 5.5 (5.0-8.0) Urine Specific [place] 1.015 (1.003-1.035) Urine Protein Negativemg/dL (NEG,TRACE) Urine Glucose (UA) Negativemg/dL (NEGATIVE) Urine Ketones Negativemg/dL (NEGATIVE) Urine Occult Blood Negative (NEGATIVE) Urine Nitrite Positive (NEGATIVE) Urine Bilirubin Negative (NEGATIVE) Urine Urobilinogen Normalmg/dL (NORMAL) Urine Leukocyte Esterase Negative (NEGATIVE) Urine RBC 0-2/hpf (0-2) Urine WBC 6-10/hpf (0-5) Urine Epithelial Cells Moderate/hpf (NONE-MOD) Urine Crystals None seen (NONE SEEN) Urine Bacteria Many/hpf (NONE-FEW) Urine Hyaline Casts None/lpf (NONE) Urine Granular Casts None seen (NONE SEEN) Urine Waxy Casts None seen (NONE SEEN) Urine Red Blood Cell Casts None seen (NONE SEEN) Urine White Blood Cell Casts None seen (NONE SEEN) Urine Mucus None seen (None Seen) Urine Trichomonas None seen (NONE SEEN) Urine Yeast None (NONE SEEN) Urinalysis Comment None Urine Culture Reflexed Indicated X-Ray Abdominal Interpretation IMPRESSION: 1. No acute intra-abdominal radiographic abnormality. Dictated by: Wilian Moody M.D. on 10/17/2016 at 11:15 Interpretation / Wet Read by: Interpret - Radiologist Re-Eval/Medical Decision Med Decision/Clinical Course 46-year-old female history of hysterectomy and left ovarian cyst with left ovary still in place presenting with suprapubic pain. Vital signs stable. Mild suprapubic tenderness and left lower quadrant tenderness. No cervical motion tenderness or left adnexal tenderness on exam. No discharge. Urine suggests UTI. Labs are stable. We will treat for UTI. Patient felt much better and discharged home with return precautions worsening abdominal pain persistent abdominal pain, sign symptoms pyelonephritis or other new or worsening symptoms.. Source of Hx: Old records Re-Evaluation/Progress : Time of Eval: 12:05 Re-Evaluation/Progress Note: Completed pelvic exam. Discussed diagnosis and plan for discharge. All questions were addressed. Counseled Regarding: Diagnosis, Lab results, Need for follow-up, When/why to return to ED Discharge & Departure Primary Impression: Urinary tract infection Urinary tract infection type: site unspecified Hematuria presence: without hematuria Qualified Code: N39.0 - Urinary tract infection, site not specified Disposition: Home Discharge Condition All VS Reviewed: Yes Condition: Stable Patient Instructions: Urinary Tract Infection in Women (ED) Additional Instructions: Thank you for entrusting us with your care today. Your urinalysis shows evidence of a urinary tract infection. Take the antibiotic as prescribed. Make sure to drink plenty of fluids. Seek care if you develop worsening abdominal pain, fevers, back pain, or any other new or concerning symptoms. Referrals: Hakeem Harvey MD (PCP) Scribdarlene Attestation Portions of this note were transcribed by Shirley Jenkins. I, Dr. Arboleda personally performed the history, physical exam and medical decision-making; I reviewed and confirmed the accuracy of the information in the transcribed note. Signed by: Sid Mayorga, 10/17/2016 at 1215. copies to: Hakeem Harvey MD, Ben M MD Oct 17, 2016 09:55 Shirley Jenkins Oct 17, 2016 10:02
[2016-10-17] MEDS ORDERED: 0.9% Sodium Chloride 1,000 ML IV ONE (10:02)
[2016-10-17] MEDS ORDERED: Ondansetron 2 mg/mL 2 mL Inj IVPUSH PRN (10:05)
[2016-10-17 10:55] LABS: BASOPHILS % (AUTO) 0.5 % (0-3); EOSINOPHILS % (AUTO) 4.9 % (0-5); MONOCYTES % (AUTO) 4.4 % (4-12); Mean Corpuscular Hemoglobin 28.3 pg (27.0-35.0); NEUTROPHILS % (AUTO) 58.6 % (40-74); Platelet Count 254 bil/L (150-400)
[2016-10-17 11:14] LABS: Magnesium 1.8 mg/dL (1.6-2.6)
--- NOTE | 2016-10-17 11:40 | DRSVH ---
PROCEDURE: X-RAY ACUTE ABDOMINAL SERIES ([id number]) INDICATIONS: abdominal pain TECHNIQUE: One view chest and two views of the abdomen were acquired. COMPARISON: [facility], CR, XR ABD ACUTE SERIES 3VW, 09/07/2015, 19:14. FINDINGS: Surgical changes and devices: There are surgical clips in the right upper quadrant. Chest: The medial lung apices are partially obscured by soft tissues. The visualized lungs are clear . Heart size is normal. No pleural effusions. No pneumoperitoneum. Abdomen: Bowel gas pattern is normal. No suspicious calcifications. Visualized solid organ contour s appear normal. Bones: No suspicious bony lesions. IMPRESSION: 1. No acute intra-abdominal radiographic abnormality. Dictated by: Wilian Moody M.D. on 10/17/2016 at 11:15 Approved by: Wilian Moody M.D. on 10/17/2016 at 11:39
[2016-10-17] MEDS ORDERED: NITR100 PO (12:06)
[2016-10-17] MEDS ORDERED: Ondansetron 2 mg/mL 2 mL Inj IVPUSH ONE (12:20)
[2016-10-17 12:21] LABS: APPEARANCE,URINE SLIGHTLY CLOUDY (CLEAR,HAZY); COLOR,URINE YELLOW (YELLOW); OCCULT BLOOD,URINE NEGATIVE (NEGATIVE); PH,URINE 5.5 (5.0-8.0); UROBILINOGEN,URINE NORMAL (NORMAL)
[2016-10-19] MEDS ORDERED: CEPH500C PO (12:59)
== END 2016-10-17 12:15 | disposition home or self-care (01) ==
LOC: SED 09:22
DX: N39.0 Urinary tract infection, site not specified (principal); B96.1 Klebsiella pneumoniae [K. pneumoniae] as the cause of diseases classified elsewhere; E11.9 Type 2 diabetes mellitus without complications; I10 Essential (primary) hypertension; K21.9 Gastro-esophageal reflux disease without esophagitis; J44.9 Chronic obstructive pulmonary disease, unspecified; F17.200 Nicotine dependence, unspecified, uncomplicated; Z88.2 Allergy status to sulfonamides; Z88.1 Allergy status to other antibiotic agents; Z88.6 Allergy status to analgesic agent; Z79.4 Long term (current) use of insulin; Z79.84 Long term (current) use of oral hypoglycemic drugs
CPT/HCPCS: 36415; 74022; 80053; 81000; 81025; 83690; 83735; 85025; 87077; 87086; 87088; 87186; 96361; 96374; 96375; 96376; 99285; J2270; J2405; J7030

== ENCOUNTER 2017-03-26 09:26 | Emergency (ER) | payer MEDICARE, OTHER ==
[~2017-03-26] VITALS: Ht 177.8 cm; Wt 100.0 kg
[~2017-03-26 09:26] MED LIST changes: +CEPH500C PO
[2017-03-26 09:30] VITALS: BP 122/83; PULSE 105; RESP 18; O2SAT 100
--- NOTE | 2017-03-26 09:40 | ED.REPORT ---
HPI-General Illness Date of Service Mar 26, 2017 ED Provider: Familia Arboleda MD A 47 year old female with a history of hypertension, diabetes, COPD, bipolar disorder, sciatica, L5-S1 laminectomy two weeks ago and an oophorectomy four weeks ago presents to the ED complaining of back pain. The pt woke last night with diaphoresis, nausea, chills and a cough, and noticed recurrent back radiating into her right buttock. This reportedly feels like her sciatica pain that has been present for some time but had been slightly more controlled since her surgery. She also admits to a fall onto her abdomen from her bed yesterday, though she has been able to walk since and did not believe that this was related to her pain. The pt denies fever, vomiting, abdominal pain, dysuria or shortness of breath. The pt's last follow up appointment with her surgeon was on 03/24/2017, at which point she was feeling well with minimal pain. She has been on Demeral for three months due to her recent surgeries, and has not yet been tapered off. Nursing Notes Stated Complaint: CHILLS/SWEATS/PAIN Chief Complaint: General Complaint Nursing Notes Reviewed: Yes Allergies: Coded Allergies: Sulfa (Sulfonamide Antibiotics) (Verified Allergy, Severe, RASH, 03/26/17) ciprofloxacin (Verified Allergy, Severe, RASH, 03/26/17) clarithromycin (Verified Allergy, Severe, rash, 03/26/17) levofloxacin (Verified Allergy, Severe, ANAPHYLAXIS, 03/26/17) pregabalin (Verified Allergy, Severe, ANAPHYLAXIS, 03/26/17) aspirin (Verified Allergy, Mild, TINNITUS, 03/26/17) valdecoxib (Verified Allergy, Unknown, UNKNOWN, 03/26/17) amoxicillin (Verified Adverse Reaction, Severe, GI UPSET, 03/26/17) clavulanic acid (Verified Adverse Reaction, Severe, GI UPSET, 03/26/17) Scheduled Abacavir/Dolutegravir/Lamivudi (Triumeq Tablet) 1 Each Tablet 1 EACH PO DAILY Amitriptyline (Amitriptyline) 50 Mg Tab 50 MG PO HS Atorvastatin (Lipitor) 20 Mg Tablet 20 MG PO DAILY Azelastine HCl (Azelastine HCl) 137 Mcg/0.137 Ml [place].pump 137 MCG NS BID Cephalexin (Cephalexin) 500 Mg Capsule 500 MG PO QID Cetirizine HCl (Zyrtec) 10 Mg Capsule 10 MG PO HS Clonazepam (Clonazepam) 1 Mg Tablet 1 MG PO TID Esomeprazole Magnesium (Nexium) 40 Mg Capsule.dr 40 MG PO DAILY Fluticasone Propionate (Fluticasone Propionate Nasal) 16 Gm [place].susp 2 SPRAY NS DAILY Gabapentin (Gabapentin) 800 Mg Tablet 800 MG PO TID Glimepiride (Glimepiride) 2 Mg Tablet 4 MG PO BID Insulin Glargine (Lantus U100 Insulin Vial) 100 Unit/Ml Vial 55 UNIT SUBQ QPM Losartan Potassium (Losartan Potassium) 25 Mg Tablet 25 MG PO DAILY Metformin (Glucophage) 1,000 Mg Tablet 1,000 MG PO QAM Metformin (Metformin) 500 Mg Tablet 500 MG PO QPM Prazosin (Prazosin) 1 Mg Capsule 1 MG PO DAILY Propranolol ER (Propranolol ER) 80 Mg Cap.sa.24h 80 MG PO DAILY Ranitidine (Ranitidine) 300 Mg Capsule 300 MG PO DAILY Sitagliptin Phos (Januvia) 50 Mg Tablet 50 MG PO DAILY Tiotropium [place] (Spiriva) 18 Mcg Cap.w.dev 18 MCG IH DAILY Scheduled PRN Albuterol Sulfate (Proair Respiclick) 90 Mcg Aer.pow.ba 90 MCG IH q4-6h PRN PRN For Shortness of Breath Hydrocortisone (Proctocream-Hc) 30 Gm Cream.appl 30 GM RC DAILY PRN PRN hemorrhoids General Time Seen by MD: 09:34 Chief Complaint Back pain Hx Obtained From: Patient Arrived By: Walk-in Sudden in Onset?: No Onset Occurred: 5 - 8 hours ago Symptom Duration: Since onset Recent Healthcare: Recent doctor visit Similar Sx Previous: No Past Medical History Past Medical History Notes: PCP: Dr. Harvey Past Medical History HIV+ Cirrhosis Gall bladder disease Hiatal hernia Chronic back pain fibromyalgia Anxiety Bipolar Hemorrhoids Hx of multiple prior SI attempts PTSD Reports: COPD, Diabetes mellitus, GERD, Hypertension Reports: Depression Past Surgical History 1. Hemorrhoidectomy (07/21/2014) 2. Right knee surgery 3. Laparoscopic total abdominal hysterectomy. matrixectomy Sinus Surgery 4. Oophorectomy 5. Laminectomy Reports: Cholecystectomy, Hysterectomy Smoking History Current Every Day Smoker, Heavy Tobacco Smoker Social History Alcohol Use: In recovery Drug Use: In recovery, Meth, THC Other Social History: Good social support, Local resident Occupation lives with Ambulatory Status Cane Review of Systems Full Review of Systems Constitutional: Reports: Chills, Denies: Fever Respiratory: Reports: Non-productive cough, Denies: Shortness of breath Cardiovascular: Denies: Chest pain GI: Reports: Nausea, Denies: Abdominal pain, Vomiting Female: Denies: Dysuria Musculoskeletal: Reports: Back pain, Denies: Neck pain Skin: Reports Diaphoresis, Denies Rash Complete sys rev & neg: except as marked. Physical Exam Vital Signs Vital Signs Date Time Temp Pulse Resp B/P Pulse Ox O2 Delivery O2 Flow Rate FiO2 03/26/17 09:30 36.4 105 18 122/83 100 Room Air Initial VS: Reviewed General/Constitutional: Awake, Alert Head / Eyes: Atraumatic, Normocephalic, PERRL, EOMI ENT: Atraumatic, Airway patent, Mucous membranes moist Neck: Atraumatic, Supple, Full range of motion Respiratory / Chest: Atraumatic, Breath sounds NL, Breath sounds = bilat, No respiratory distress Cardiovascular: Heart rate NL, Regular rhythm, Heart sounds NL Abdomen: Atraumatic, Soft, No guarding, No rebound diffuse minimal abdominal tenderness Back: Full range of motion two vertical midline lower back incisions well healing without surrounding erythema, fluctuance, discharge or warmth straight leg raise positive at 45 degrees on the right Upper Extremities Upper Extremity / MS: Atraumatic, Full range of motion Lower Extremity / Pelvis / MS: Atraumatic, Full range of motion Skin: Color NL, No rash, Warm, Dry Neurologic: Oriented X3, Speech NL, No motor deficits, No sensory deficits Psychiatric: Affect NL, Mood NL Interpretation & Diagnostics Interpretation & Diagnostics: Lumbar Spine X-Ray: IMPRESSION: Multilevel degenerative disc disease. No acute fracture. No osseous lesion. If clinical suspicion and/or symptoms persist, further assessment with repeat plainfilms, or advanced imaging (e.g., CT, MRI, or bone scan) may be helpful for further assessment. Dictated by: Miguelina Rajput M.D. on 03/26/2017 at 10:09 Approved by: Miguelina Rajput M.D. on 03/26/2017 at 10:11 Lab Results Interpretation Result Diagram: 03/26/17 1018 03/26/17 1018 Test 03/26/17 10:18 03/26/17 12:20 White Blood Count 10.6th/mm3 (3.8-10.1) Red Blood Count 5.04mil/mm3 (3.90-5.20) Hemoglobin 14.3g/dL (12.0-15.6) Hematocrit 42.8% (35.0-46.0) Mean Corpuscular Volume 84.9fL (81-100) Mean Corpuscular Hemoglobin 28.4pg (27.0-35.0) Mean Corpuscular Hemoglobin Concent 33.4% (32.0-37.0) Red Cell Distribution Width 13.5% (12.3-15.4) Platelet Count 444bil/L (150-400) Neutrophils (%) (Auto) 72.1% (40-74) Lymphocytes (%) (Auto) 20.0% (14-46) Monocytes (%) (Auto) 3.9% (4-12) Eosinophils (%) (Auto) 3.3% (0-5) Basophils (%) (Auto) 0.5% (0-3) Sodium Level 138mEq/L (134-144) Potassium Level 4.5mEq/L (3.5-5.2) Chloride Level 101mEq/L (97-108) Carbon Dioxide Level 21mmol/L (18-29) Blood Urea Nitrogen 11mg/dL (6-24) Creatinine 0.85mg/dL (0.57-1.00) Estimat Glomerular Filtration Rate 104mL/min (>59) Glucose Level 208mg/dL (60-99) Calcium Level 9.5mg/dL (8.5-10.1) Magnesium Level 1.6mg/dL (1.6-2.6) Total Bilirubin 0.3mg/dL (0.0-1.2) Aspartate Amino Transf (AST/SGOT) 19U/L (0-50) Alanine Aminotransferase (ALT/SGPT) 19U/L (0-32) Alkaline Phosphatase 128U/L (25-150) Total Protein 7.9g/dL (6.4-8.4) Albumin 4.0g/dL (3.4-5.0) Lipase 33U/L (13-60) Hold [place] Top Tube Received (Received) Urine Color Dark yellow (YELLOW) Urine Appearance Clear (CLEAR,HAZY) Urine pH 7.0 (5.0-8.0) Urine Specific [place] 1.034 (1.003-1.035) Urine Protein Tracemg/dL (NEG,TRACE) Urine Glucose (UA) Negativemg/dL (NEGATIVE) Urine Ketones Negativemg/dL (NEGATIVE) Urine Occult Blood Negative (NEGATIVE) Urine Nitrite Negative (NEGATIVE) Urine Bilirubin Negative (NEGATIVE) Urine Urobilinogen Normalmg/dL (NORMAL) Urine Leukocyte Esterase Negative (NEGATIVE) Urine RBC 0-2/hpf (0-2) Urine WBC 0-5/hpf (0-5) Urine Epithelial Cells Few/hpf (NONE-MOD) Urine Crystals None seen (NONE SEEN) Urine Bacteria Few/hpf (NONE-FEW) Urine Hyaline Casts None/lpf (NONE) Urine Granular Casts None seen (NONE SEEN) Urine Waxy Casts None seen (NONE SEEN) Urine Red Blood Cell Casts None seen (NONE SEEN) Urine White Blood Cell Casts None seen (NONE SEEN) Urine Mucus None seen (None Seen) Urine Trichomonas None seen (NONE SEEN) Urine Yeast Few (NONE SEEN) Urinalysis Comment None Urine Culture Reflexed Not indicated Re-Eval/Medical Decision Med Decision/Clinical Course 47-year-old female history of chronic pain who is 2 weeks status post L5-S1 laminectomy presenting with right lower back pain radiating to her buttocks which feels like her typical chronic pain. Straight leg raise is positive. She has no red flag symptoms no weakness numbness tingling, saddle anesthesia, incontinence. She has no sense symptoms of infection. Her labs are unremarkable. Her pain improved with Toradol. She has no neurovascular deficits. Likely acute exacerbation of her chronic sciatica. I do not see any evidence of surgical site infection and her white blood cell count is reassuring. She also has some vague chills and recently had a complete oophorectomy one month ago. She had declined hormone treatment. She may be having menopause as a result. She will follow up with primary doctor tomorrow for recheck and possible hormone therapy. I also advised to follow-up with her surgeon if her pain persists. Return precautions given. Source of Hx: Old records Time of Eval: 12:25 Patient Status: Condition improved Re-Evaluation/Progress Note: Pt rechecked, who is comfortable. The diagnosis and plan for discharge are discussed. The pt understands and agrees with the plan. All questions are addressed at this time. Counseled Regarding: Diagnosis, Lab results, Need for follow-up, When/why to return to ED Discharge & Departure Primary Impression: Sciatica Laterality: right Qualified Code: M54.31 - Sciatica, right side Disposition: Home Discharge Condition All VS Reviewed: Yes Condition: Stable Patient Instructions: Sciatica (ED) Additional Instructions: Thank you for entrusting us with your care. Your evaluation was reassuring. Call your primary care physician to arrange a follow up appointment in the next several days. Return to the emergency department if you develop any new or worsening symptoms including worsening pain, incontinence, numbness or weakness , abdominal pain, fevers, nausea/vomiting. Referrals: Hakeem Harvey MD (PCP) Scribe Attestation Portions of this note were transcribed by Balwinder Vega. I, Dr. Arboleda personally performed the history, physical exam and medical decision-making; I reviewed and confirmed the accuracy of the information in the transcribed note. copies to: Hakeem Harvey MD, Ben M MD Mar 26, 2017 09:39 BALWINDER VEGA Mar 26, 2017 09:49
[2017-03-26] MEDS ORDERED: 0.9% Sodium Chloride 1,000 ML IV ONE (09:52)
[2017-03-26] MEDS ORDERED: Ondansetron 2 mg/mL 2 mL Inj IVPUSH PRN (09:55)
--- NOTE | 2017-03-26 10:12 | DRSVH ---
PROCEDURE: X-RAY LUMBAR SPINE, 2 OR 3 VIEW INDICATIONS: Low back pain s/p laminectomy, fall TECHNIQUE: 3 views of the lumbar spine were acquired. COMPARISON: [facility], , -SPINE 2-3 VIEWS, 03/09/2017, 14:12. FINDINGS: Bones: 5 [id number] vertebrae are present. There is normal bony alignment. No vertebral body c ompression fractures. No suspicious bony lesions. L5-S1 fusion has been performed. Multilevel endpl ate osteophytes are present. Soft tissues: Overlying bowel gas pattern is normal. No suspicious soft tissue calcifications. IMPRESSION: Multilevel degenerative disc disease. No acute fracture. No osseous lesion. If clinical s uspicion and/or symptoms persist, further assessment with repeat plainfilms, or advanced imaging (e.g ., CT, MRI, or bone scan) may be helpful for further assessment. Dictated by: Miguelina Rajput M.D. on 03/26/2017 at 10:09 Approved by: Miguelina Rajput M.D. on 03/26/2017 at 10:11
[2017-03-26 10:32] LABS: BASOPHILS % (AUTO) 0.5 % (0-3); EOSINOPHILS % (AUTO) 3.3 % (0-5); MONOCYTES % (AUTO) 3.9 % (4-12); Mean Corpuscular Hemoglobin 28.4 pg (27.0-35.0); Mean Corpuscular Volume 84.9 fL (81-100); NEUTROPHILS % (AUTO) 72.1 % (40-74); Platelet Count 444 bil/L (150-400)
[2017-03-26 10:55] LABS: Magnesium 1.6 mg/dL (1.6-2.6)
[2017-03-26 13:05] LABS: COLOR,URINE DARK YELLOW (YELLOW)
[2017-03-26 13:06] LABS: APPEARANCE,URINE CLEAR (CLEAR,HAZY); OCCULT BLOOD,URINE NEGATIVE (NEGATIVE); UROBILINOGEN,URINE NORMAL (NORMAL)
[2017-03-26 13:08] LABS: YEAST,URINE FEW (NONE SEEN)
== END 2017-03-26 12:36 | disposition home or self-care (01) ==
LOC: SED 09:26
DX: M54.31 Sciatica, right side (principal); I10 Essential (primary) hypertension; J44.9 Chronic obstructive pulmonary disease, unspecified; K21.9 Gastro-esophageal reflux disease without esophagitis; E11.9 Type 2 diabetes mellitus without complications; F41.8 Other specified anxiety disorders; F31.9 Bipolar disorder, unspecified; B20 Human immunodeficiency virus [HIV] disease; M79.7 Fibromyalgia; F17.200 Nicotine dependence, unspecified, uncomplicated; Z91.5 Personal history of self-harm; Z90.710 Acquired absence of both cervix and uterus; Z90.722 Acquired absence of ovaries, bilateral; Z98.890 Other specified postprocedural states; Z79.4 Long term (current) use of insulin; Z79.84 Long term (current) use of oral hypoglycemic drugs; Z88.1 Allergy status to other antibiotic agents; Z88.2 Allergy status to sulfonamides; Z88.6 Allergy status to analgesic agent; Z88.8 Allergy status to other drugs, medicaments and biological substances
CPT/HCPCS: 36415; 72100; 80053; 81000; 83690; 83735; 85025; 96361; 96374; 96375; 99285; J1885; J2405; J7030